=== PATIENT | female | born 1975 | race Caucasian/White ===

== ENCOUNTER → 2020-09-23 14:14 | Outpatient (BNVA) | payer BC, SELFPAY | PROVIDERS: Family Provider Nurse Practitioner Family; PCP Family Medicine; Visit Provider Nurse Practitioner Family | DX: Z11.59 Encounter for screening for other viral diseases (principal) | CPT/HCPCS: 87635 ==

== ENCOUNTER 2024-09-18 18:39 | Emergency (ER) | payer BC, SELFPAY ==
[2024-09-18 18:45] VITALS: BP 136/77; PULSE 96; RESP 18; TEMP 37.1; O2SAT 92; BMI 47.8
--- NOTE | 2024-09-18 19:06 | XRR_ITS ---
PROCEDURE INFORMATION: Exam: XR Chest Exam date and time: 09/18/2024 7:17 PM Age: 48 years old Clinical indication: Shortness of breath; Anxiety TECHNIQUE: Imaging protocol: Radiologic exam of the chest. Views: 1 view. COMPARISON: CR XR chest 1V [id number] 01/02/2018 12:29 PM FINDINGS: Lungs: Unremarkable. No consolidation. Pleural spaces: Unremarkable. No pleural effusion. No pneumothorax. Heart/Mediastinum: Unremarkable. No cardiomegaly. Bones/joints: Unremarkable. XR/XR chest 1V portable [id number] IMPRESSION: No acute findings.
--- NOTE | 2024-09-18 19:06 | ECG_ITS ---
[employer] Test Date: 2024-09-18 Pat Name: Iram Luque Department: Room: Gender: Female Education Rep: : 1975 Requested By: Piter Webb Order Number: [id number] Gisela MD: Zheng Patino M.D. Measurements Intervals [place] Rate: 87 P: 61 HI: 137 QRS: 48 QRSD: 74 T: 52 QT: 348 QTc: 420 Interpretive Statements SINUS RHYTHM WITH SINUS ARRHYTHMIA LOW QRS VOLTAGE IN PRECORDIAL LEADS [QRS DEFLECTION < 1.0 mV IN CHEST LEADS] No previous ECG available for comparison Electronically Signed On 09-20-2024 00:07:01 CDT by Zheng Patino M.D. [email or web address]
--- NOTE | 2024-09-18 19:27 | ED_ITS ---
HPI - Anxiety 2 General: Chief Complaint: Anxiety Stated Complaint: SOB Time Seen by Provider: 09/18/24 18:41 History of Present Illness: 48-year-old female presenting with short ness of breath. After being suspended in the air on a repelling tower for 15 minutes or so. She says that her arms were hurting quite badly after being there for some time. She states that she may have panicked a bit, but began to get short of breath. She has some diffuse numbness and tingling to her upper extremities which is improved. Symptoms also improved after an albuterol treatment on the way here. She denies recent increase in cough, shortness of breath prior to the event, chest discomfort, fever, etc. Related Data Home Medications Medication Instructions Recorded Confirmed fluticasone propionate 50 1 spray intranasal DAILY 09/23/20 09/23/20 mcg/actuation nasal spray,suspension levocetirizine 5 mg tablet (Xyzal) 5 mg PO DAILY 09/23/20 09/23/20 Allergies Allergy/AdvReac Type Severity Reaction Status Date / Time codeine Allergy Intermediate itching Verified 09/23/20 13:59 PFS ED 2 PFSH: Family History Mother Hypertension Lung disease Social History Smoking and tobacco/nicotine status: current every day tobacco/nicotine user Alcohol intake: never Substance/Drug Use: never Physical Exam 2 Const: COMMON NORMALS: no acute distress GENERAL APPEARANCE: cooperative; not ill appearing and not frail appearing HENMT: COMMON NORMALS: normocephalic, atraumatic and Normal external nose present HEAD & SCALP: normocephalic and atraumatic FACE & SINUS: normal facial exam and face symmetric NOSE: Normal external nose present Eye: COMMON NORMALS: Equal, round and reactive pupils present and EOMs intact bilaterally PUPIL: Yes Equal, round and reactive pupils present Neck/C-Spine: GENERAL: Yes trachea midline Chest: CHEST: Yes Symmetrical chest wall rise Resp: COMMON NORMALS: normal respiratory effort, No retractions, No use of accessory muscles and clear to auscultation bilaterally AUSCULTATION: clear to auscultation bilaterally Cardio: COMMON NORMALS: regular rate and regular rhythm RATE: regular rate RHYTHM: regular rhythm GI: COMMON NORMALS: Normal to inspection, nondistended, normoactive bowel sounds present Extremity: COMMON NORMALS: no pedal edema Neuro: MONA COMA SCALE: document GCS findings Mona coma scale eye opening: Spontaneous Mona coma scale verbal response: Orientated [place] coma scale motor response: [place]bey commands Mona coma scale total score: 15 S ENSORY EXAM: Yes extremities (intact) Psych: COMMON NORMALS: speech normal SPEECH: Yes normal speech Skin: COMMON NORMALS: no rashes or lesions noted GENERAL SKIN EXAM: no rashes or lesions noted Course 2 Vital Signs: Vital signs: Vital Signs Temperature 98.7 F 09/18/24 18:45 Pulse Rate 74 09/18/24 19:56 Respiratory Rate 24 H 09/18/24 19:56 Blood Pressure 115/78 09/18/24 19:56 Pulse Oximetry 96 09/18/24 19:56 Oxygen Delivery Me thod Room Air 09/18/24 19:53 MDM - Anxiety Medical Decision Making Patient is significantly proved. Chest x-ray is negative. EKG is nonremarkable. Laboratories not remarkable. With improvement in her symptoms, she will be allowed home. Lab Data 09/18/24 19:38 09/18/24 19:38 Laboratory Results WBC 12.55 10^3/uL (3.29-11.43) H 09/18/24 19:38 RBC 4.76 10^6/uL (3.85-5.65) 09/18/24 19:38 Hgb 14.70 g/dL (11.27-16.99) 09/18/24 19:38 Hct 45.1 % (36-47) 09/18/24 19:38 MCV 94.7 fl (85-98) 09/18/24 19:38 MCH 30.9 pg (27-33) 09/18/24 19:38 MCHC 32.6 g/dL (30-55) 09/18/24 19:38 RDW 13.6 % (12.1-15.1) 09/18/24 19:38 Plt Count 228 10^3/cmm (157-399) 09/18/24 19:38 MPV 9.9 fL (7.4-10.4) 09/18/24 19:38 Neut % (Auto) 70.7 % 09/18/24 19:38 Lymph % (Auto) 20.8 % 09/18/24 19:38 [place] % (Auto) 6.5 % 09/18/24 19:38 Eos % (Auto) 1.0 % 09/18/24 19:38 Baso % (Auto) 0.7 % 09/18/24 19:38 Neut # (Auto) 8.87 10^3/uL (1.8-7.7) H 09/18/24 19:38 Lymph # (Auto) 2.6 10^3/uL (0.8-4.8) 09/18/24 19:38 [place] # (Auto) 0.8 10^3/uL (0.2-0.9) 09/18/24 19:38 Eos # (Auto) 0.1 10^3/uL (0.0-0.8) 09/18/24 19:38 Baso # (Auto) 0.1 10^3/uL (0.0-0.1) 09/18/24 19:38 Nucleated RBC % (auto) 0 % 09/18/24 19:38 Nucleated RBCs # 0.0 /100WBC 09/18/24 19:38 Sodium 137 mmol/L (136-145) 09/18/24 19:38 Potassium 4.2 mmol/L (3.5-5.1) 09/18/24 19:38 Chloride 106 mmol/L (98-107) 09/18/24 19:38 Carbon Dioxide 21 mmol/L (22-29) L 09/18/24 19:38 Anion Gap 14.2 (5-19) 09/18/24 19:38 BUN 16 mg/dL (6-20) 09/18/24 19:38 Creatinine 0.6 mg/dL (0.5-0.9) 09/18/24 19:38 GFR Calculation 107.6 mL/min (90-130) 09/18/24 19:38 Glucose 93 mg/dL (65-115) 09/18/24 19:38 Calculated Osmolality 285 mOsm/kg (285-295) 09/18/24 19:38 Calcium 8.1 mg/dL (8.5-10.5) L 09/18/24 19:38 Total Bilirubin 0.2 mg/dL (0.15-1.2) 09/18/24 19:38 AST 17 U/L (0-32) 09/18/24 19:38 ALT 20 U/L (0-33) 09/18/24 19:38 Alkaline Phosphatase 75 U/L (35-105) 09/18/24 19:38 Creatine Kinase 73 U/L (26-192) 09/18/24 19:38 Total Protein 6.3 g/dL (6.6-8.7) L 09/18/24 19:38 Albumin 3.7 g/dL (3.5-5.2) 09/18/24 19:38 Globulin 2.6 g/dL (1.3-4.6) 09/18/24 19:38 XR interpretation done by ED provider, pending radiology final review Discharge Plan Discharge Patient Disposition: Home Clinical Impression: Acute anxiety Condition: Stable Prescriptions: No Action levocetirizine [Xyzal] 5 mg tablet 5 mg PO DAILY fluticasone propionate 50 mcg/actuation spray,suspension 1 spray INTRANASAL DAILY Rx Instructions: administer into each nostril Discharge Orders: Discharge ED (Routine); Ordered 09/18/24 Ordered By: Piter Jin Referrals: Julio Mistry DO [Primary Care Provider] - Patient Instructions: Dyspnea (ED), Opioid Safety, Pain Management Activity Restrictions/Additional Instructions: Return for worsening shortness of breath, development of chest pain, fever, cough, any other concerning symptoms. Coding Level of Care Code ED It Systems Administrator for Malik Chapa
[2024-09-18] MEDS: LORazepam 2 mg/mL INJ 1 mL 1 MG IVP (19:37)
[2024-09-18 19:45] LABS: Basophils # 0.1 10^3/uL (0.0-0.1); Basophils % 0.7 %; Eosinophils # 0.1 10^3/uL (0.0-0.8); Hematocrit 45.1 % (36-47); Lymphocytes # 2.6 10^3/uL (0.8-4.8); Lymphocytes % 20.8 %; Mean Corpuscular HGB Conc 32.6 g/dL (30-55); Mean Corpuscular Hemoglobin 30.9 pg (27-33); Mean Corpuscular Volume 94.7 fl (85-98); Mean Platelet Volume 9.9 fL (7.4-10.4); Monocytes # 0.8 10^3/uL (0.2-0.9); Monocytes % 6.5 %; Neutrophils # 8.87 10^3/uL (1.8-7.7); Neutrophils % 70.7 %; Nucleated Red Blood Cells % 0 %; Platelet Count 228 10^3/cmm (157-399); Red Blood Count 4.76 10^6/uL (3.85-5.65); Red Cell Distribution Width 13.6 % (12.1-15.1); White Blood Count 12.55 10^3/uL (3.29-11.43)
[2024-09-18] MEDS: ipratropium-albuterol 3 mL Neb INHALATION (19:49)
[2024-09-18 19:50] VITALS: PULSE 94; RESP 18; O2SAT 92
[2024-09-18 19:53] VITALS: PULSE 92; RESP 18; O2SAT 94
[2024-09-18 19:56] VITALS: BP 115/78; PULSE 74; RESP 24; O2SAT 96
[2024-09-18 20:06] LABS: Alanine Aminotransferase 20 U/L (0-33); Albumin Level 3.7 g/dL (3.5-5.2); Alkaline Phosphatase 75 U/L (35-105); Anion Gap 14.2 (5-19); Aspartate Amino Transferase 17 U/L (0-32); Blood Urea Nitrogen 16 mg/dL (6-20); Calcium 8.1 mg/dL (8.5-10.5); Carbon Dioxide 21 mmol/L (22-29); Chloride 106 mmol/L (98-107); Creatine Phosphokinase 73 U/L (26-192); Globulin 2.6 g/dL (1.3-4.6); Glomerular Filtration Rate 107.6 mL/min (90-130); Glucose 93 mg/dL (65-115); Osmolality Calculated 285 mOsm/kg (285-295); Potassium 4.2 mmol/L (3.5-5.1); Sodium 137 mmol/L (136-145); Total Bilirubin 0.2 mg/dL (0.15-1.2); Total Protein 6.3 g/dL (6.6-8.7)
== END 2024-09-18 19:58 | disposition home or self-care (01) ==
PROVIDERS: Emergency Provider Emergency Medicine; PCP Family Medicine
DX: F41.9 Anxiety disorder, unspecified (principal)
CPT/HCPCS: 71045; 80053; 82550; 85025; 93005; 94640; 96374; 99285; J2060